=== PATIENT | male | born 1990 | race Caucasian/White ===

== ENCOUNTER 2022-12-08 22:22 | Emergency (ER) | payer SELFPAY ==
[~2022-12-08] VITALS: Ht 162.6 cm; Wt 69.0 kg
[2022-12-08 22:28] VITALS: BP 139/100; PULSE 119; RESP 16; TEMP 97.8; O2SAT 99
== END 2022-12-09 07:53 | disposition home or self-care (01) ==
LOC: ER 22:22
DX: F10.129 Alcohol abuse with intoxication, unspecified (principal); R41.82 Altered mental status, unspecified; Y90.0 Blood alcohol level of less than 20 mg/100 ml
CPT/HCPCS: 99283